=== PATIENT | male | born 1950 | race Caucasian/White ===

== ENCOUNTER 2017-03-22 07:42 | Day surgery (SDC) | payer BC ==
--- NOTE | 2017-02-25 09:39 | HP ---
PREOPERATIVE HISTORY AND PHYSICAL: DATE OF SURGERY/ADMISSION: 03/22/17 PROCEDURE: Left ring and small finger Dupuytren's excision. CHIEF COMPLAINT: Dupuytren's contracture, left hand. HISTORY OF PRESENT ILLNESS: This is a 66-year-old male who has a history of Dupuytren's contracture s in his bilateral hands. He had Xiaflex injections and surgery on the right hand a few years ago. He had a fairly rapid recurrence after the Xiaflex injection and then had surgery, which he has don e well with. On the left hand he has a contracture involving the ring and small finger PIP joints o f about 30 degrees and he is interested in pursuing surgical intervention for this at this time. He feels he would get a better outcome with surgery than with the Xiaflex injections. He denies any n umbness or tingling in the hands. He denies any injury. 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 After evaluation by Dr. Jameson, he has agreed to proceed with surgical intervention in the form of a left ring and small finger Dupu ytren's excision. PAST MEDICAL HISTORY: 1. Diabetes type 2. 2. Recovering alcoholic. 3. Depression. 4. Hypercholesterolemia. PAST SURGICAL HISTORY: 1. Right hand Dupuytren's excision in 2013. 2. Back surgery for herniated disks x2. 3. Appendectomy. 4. Tonsillectomy. 5. Anxiety. CURRENT MEDICATIONS: 1. Aleve 220 mg p.r.n. 2. Alprazolam 0.25 mg q.2 hours p.r.n. anxiety. 3. Atorvastatin calcium 40 mg daily. 4. Bupropion HCL ER XL 300 mg daily. 5. Citrucel 500 mg 2 tabs daily. 6. Eszopiclone 2 mg one tab q.h.s. p.r.n. 7. Losartan potassium 25 mg daily. 8. Metformin HCL 500 mg b.i.d. 9. Vitamin C 500 mg daily. 10. Zinc 30 mg once a day. ALLERGIES: No known drug allergies. FAMILY HISTORY: Heart disease. 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 Prior to that he smoked a pack a day for 30 years. He denies recreationa l drug use. No alcohol at this time. He is a recovering alcoholic. REVIEW OF SYSTEMS: General: Negative for fevers, chills, or night sweats. No known anesthesia pro blems. HEENT: Negative for headache, lightheadedness, or syncopal episodes. Integumentary: Negat edgar for abrasions, lesions or open wounds. Cardiothoracic: Negative for hypertension. Negative for chest pain, palpitations or edema. Pulmonary: Negative for shortness of breath with exertion, chr onic cough or COPD. GI: Negative for nausea, vomiting, diarrhea, constipation, or GERD. : Nega tive for nocturia, urinary frequency, urgency, history of UTIs or kidney problems. Musculoskeletal: Positive for current complaint, otherwise negative. Neurological: Positive for anxiety. Negativ e for paresthesias, numbness, history of seizure, stroke or epilepsy. Endocrine: Positive for diab etes x2. Negative for thyroid issues. Hematologic: Negative for easy bruising, anemia, excessive bleeding, or history of DVT. Infectious Disease: Negative for history of MRSA, hepatitis C, or HIV. PHYSICAL EXAMINATION GENERAL: Well-developed, well-nourished 66-year-old male in no acute distress. VITAL SIGNS: Height 5 feet 9 inches, weight 223 pounds. Pulse rate 88, blood pressure 116/78. HEENT: Normocephalic and atraumatic. Pupils equal, round, reactive to light and accommodation. Ex traocular movements are intact. NECK: Supple. No palpable lymph nodes. Throat is clear. PULMONARY: Lungs are clear to auscultation bilaterally. No wheezes, rales, or rhonchi. CARDIOTHORACIC: Regular rate and rhythm. S1 and S2. No murmurs, rubs, or gallops. No edema. ABDOMEN: Positive bowel sounds, soft, nontender. NEUROLOGIC: Alert and oriented x3. Cranial nerves II through XII are intact. Sensation is intact t o light touch. MUSCULOSKELETAL: On exam of the left hand, he has Dupuytren's contracture involving the ring and sm all finger PIP joints mostly with an MP contracture of about 30 degrees. Both the cords extend past the PIP joint. He can fully flex his fingers into a fist, but cannot fully extend. Neurovascular function is intact. IMPRESSION: Left hand Dupuytren's contracture. PLAN/RECOMMENDATIONS: The patient is scheduled to undergo a left ring and small finger Dupuytren's excision with Dr. Jameson on 03/22/17. Prescription for [place] was e-scribed to the patient's pharmacy for postoperative pain management. We will plan on seeing him back in the office 10 to 14 days pos top for followup. SHIRAZ BOLTON [id number]/[facility] #: [id number]
[~2017-03-22 07:42] MED LIST: Buffered Lidocaine 1% SYRIN* 3 ML/SYR SYRINGE INTRADERM ONE; Famotidine IV* 10 MG/ML 2 ML (20 mg) IV ONE
[2017-03-22] MEDS ORDERED: Famotidine IV* 10 MG/ML 2 ML (20 mg) ONE (07:58)
[2017-03-22] MEDS ORDERED: ceFAZolin 2 GM PREMIX(*) 2 GM/50 ML BAG IVPB ONE (07:58)
[2017-03-22] MEDS ORDERED: fentaNYL* 50 MCG/ML 2 ML VIAL (100 MCG VIAL) ONE (08:28)
[2017-03-22] MEDS ORDERED: Midazolam* 1 MG/ML 5 ML VIAL (5 MG) ONE (08:28)
[2017-03-22] MEDS ORDERED: Ondansetron INJ* 2 MG/ML VIAL ONE (08:29)
[2017-03-22] MEDS ORDERED: Lidocaine 2% PF * 5 ML VIAL ONE (08:29)
[2017-03-22] MEDS ORDERED: Propofol* 10 MG/ML 20 ML BTL IV PUSH ONE (08:29)
[2017-03-22] MEDS ORDERED: Ketorolac INJ* 30 MG/ML 1 ML VIAL ONE (08:29)
[2017-03-22] MEDS ORDERED: Acetaminophen TAB* 325 MG PO PRN (08:55)
[2017-03-22] MEDS ORDERED: oxyCODONE/Acetamin 5/325 MG* TAB PO PRN (08:55)
[2017-03-22] MEDS ORDERED: DiMENhydriNATE IV* 50 MG/ML VIAL IV PUSH PRN (08:55)
[2017-03-22] MEDS ORDERED: HYDROmorphone* 1 MG/ML 1 ML SYR IV PRN (08:55)
[2017-03-22] MEDS ORDERED: Lidocaine 1% INJ* 10 MG/ML 30 ML SDV ONE (09:26)
[2017-03-22 12:00] VITALS: BP 115/79
--- NOTE | 2017-03-23 01:01 | OP ---
DATE OF OPERATION: 03/22/17 [facility] DATE OF : 54 SURGEON: Sue Jameson MD DIRECTOR MARKETING: SHIRAZ Zamora ANESTHESIOLOGIST: Mila Landeros MD ANESTHESIA: Local MAC. PRE-OP DIAGNOSES: Dupuytren's contracture of the left ring and small finger and left ring finger mass. POST-OP DIAGNOSES: Dupuytren's contracture of the left ring and small finger and left ring finger mass. OPERATIVE PROCEDURE: Removal of left ring finger mass and Dupuytren's contracture excision of left ring and small fingers. ESTIMATED BLOOD LOSS: Zero. TOURNIQUET TIME: 1 hour 15 minutes. INDICATIONS: Ok is a 66-year-old man who has contracture of his ring and small fingers of the left hand and a small mass of the distal IP flexion crease of his ring finger. He presents for mass removal and Dupuytren's contracture excision. DESCRIPTION OF PROCEDURE: The patient was brought to the operating room, given a sedation anesthetic and a local infiltration of total 20 cc of 1% plain lidocaine. The skin of his left upper extremity was prepped and draped in the usual sterile fashion. The hand and forearm were exsanguinated and the tourniquet elevated to 250 mmHg. An elliptical incision was made centered around the mass at the DIP flexion crease of the ring finger and it was removed in its entirety and sent for pathology. The wound was irrigated and the skin edges were reapproximated with 4-0 nylon suture. Next, two Blossom incisions were made one on each of the ring and small fingers and the skin carefully dissected off of the Dupuytren's tissue. The digital neurovascular bundles were retracted and carefully traced out. All of the Dupuytren's tissue was removed and this released completely the PIP joint contractures. The wounds were irrigated and the skin edges were reapproximated with 4-0 nylon sutures. The wounds were dressed with Xeroform, 4x4, Webril, and an Andreas wrap. The patient tolerated the procedure well and was brought to the recovery in good condition. [id number]/[facility] #: [id number] [facility]
== END 2017-03-22 11:50 | disposition home or self-care (01) ==
LOC: OREAST 07:42
PROVIDERS: ATTEND Orthopaedic Surgery
DX: M72.0 Palmar fascial fibromatosis [Dupuytren] (principal); B07.9 Viral wart, unspecified; E11.8 Type 2 diabetes mellitus with unspecified complications; F10.21 Alcohol dependence, in remission; F41.9 Anxiety disorder, unspecified; Z79.84 Long term (current) use of oral hypoglycemic drugs; Z87.891 Personal history of nicotine dependence
CPT/HCPCS: 88304; J0690; J1885; J2001; J2250; J2405; J2704; J3010